=== PATIENT | male | born 1930 | race Caucasian/White ===

== ENCOUNTER 2019-04-13 14:33 | Emergency (ER) | payer MEDICARE, MEDICAID ==
--- NOTE | 2019-04-13 15:16 | ED Physician Chart ---
ED Chief Complaint/HPI - Patient Information Date Seen:: 04/13/19 Time Seen:: 15:11 Chief Complaint:: psych History of Present Illness:: 88 yr old male who was being monitored by his son on nest camera where he was supposedly seen to be holding a gun and pointing it at people through the window police were called and he was placed on a hold Allergies:: Allergies Allergy/AdvReac Type Severity Reaction Status Date / Time No Known Allergies Allergy Verified 04/13/19 14:49 Vitals:: Vital Signs - 8 hr 04/13/19 14:50 Temp 97.6 F HR 87 RR 16 BP 116/73 ED Review of Systems - Review of Systems General/Constitutional: No fever, No chills, No weight loss, No weakness, No diaphoresis, No edema, No loss of appetite Skin: No skin lesions, No rash, No bruising Head: No headache, No light-headedness Eyes: No loss of vision, No pain, No diplopia ENT: No earache, No nasal drainage, No sore throat, No tinnitus Neck: No neck pain, No swelling, No thyromegaly, No stiffness, No mass noted Cardio Vascular: No chest pain, No palpitations, No PND, No orthopnea, No edema Pulmonary: No SOB, No cough, No sputum, No wheezing GI: No nausea, No vomiting, No diarrhea, No pain, No melena, No hematochezia, No constipation, No hematemesis G/U: No dysuria, No frequency, No hematuria Musculoskeletal: No bone or joint pain, No back pain, No muscle pain Endocrine: No polyuria, No polydipsia Psychiatric: No prior psych history, No depression, No anxiety, No suicidal ideation Hematopoietic: No bruising, No lymphadenopathy Allergic/Immuno: No urticaria, No angioedema Neurological: No syncope, No focal symptoms, No weakness, No paresthesia, No headache, No seizure, No dizziness, No confusion, No vertigo ED Past Medical History - Past Medical History Past Medical History: HTN Family Medical History - Family Member Mother Ethnicity: Non- Living Status: Hx Family Cancer: No Hx Family Coronary Artery Disease: No Hx Family Congestive Heart Failure: No Hx Family Hypertension: No Hx Family Stroke: No Hx Family Diabetes: No Hx Family Seizures: No Hx Family Dementia: No Hx Family AIDS: No Hx Family HIV: No Hx Family COPD: No Hx Family Hepatitis: No Hx Family Psychiatric Problems: No Hx Family Tuberculosis: No Other Medical History: ASTHMA ED Physical Exam - Physical Examination General/Constitutional: Awake, Well-developed, well-nourished, Alert, No distress, GCS 15, Non-toxic appearing, Ambulatory Head: Atraumatic Eyes: Lids, conjuctiva normal, PERRL, EOMI Skin: Nl inspection, No rash, No skin lesions, No ecchymosis, Well hydrated, No lymphadenopathy ENMT: External ears, nose nl, Nasal exam nl, Lips, teeth, gums nl Neck: Nontender, Full ROM w/o pain, No JVD, No nuchal rigidity, No bruit, No mass, No stridor Respiratory: Nl effort/Exclusion, Clear to Auscultation, No Wheeze/Rhonchi/Rales Cardio Vascular: RRR, No murmur, gallop, rubs, NL S1 S2 GI: No tenderness/rebounding/guarding, No organomegaly, No hernia, Normal BS's, Nondistended, No mass/bruits, No McBurney tenderness : No CVA tenderness Extremities: No tenderness or effusion, Full ROM, normal strength in all extremities, No edema, Normal digits & nails Neuro/Psych: Alert/oriented, DTR's symmetric, Normal sensory exam, Normal motor strength, Judgement/insight normal, Mood normal, Normal gait, No focal deficits Misc: Normal back, No paraspinal tenderness ED Assessment - Assessment General Assessment: psych 5150 hold ED Septic Shock - . Is Septic Shock (SBP<90, OR Lactate>4 mmol\L) present?: No - <6hrs of presentation: Vital Signs: Vital Signs - 8 hr 04/13/19 14:50 Temp 97.6 F HR 87 RR 16 BP 116/73 ED Reassessment (Disposition) - Reassessment Reassessment:: psych 5150 hold - Diagnosis Diagnosis:: as above - Patient Disposition Condition at Disposition:: Stable
[2019-04-13 15:52] LABS: HEMATOCRIT 38.2 % (41.0-60); HEMOGLOBIN 12.8 gm/dL (12-16); MEAN CELL VOLUME 95.5 fl (80-99); MEAN CORPUSCULAR HGB CONC 33.5 pg (28.0-36.0); PLATELET COUNT 135 Th/cmm (150-400); RED CELL DISTRIBUTION WIDTH 14.6 % (11.5-20.0)
[2019-04-13 15:54] LABS: WHITE BLOOD COUNT 3.7 Th/cmm (4.8-10.8)
[2019-04-13 15:58] LABS: ALB/GLOB RATIO 1.5 (1.0-1.8); ALBUMIN 3.9 gm/dL (4.2-5.5); ALKALINE PHOSPHATASE 73 U/L (34-104); ANION GAP 13.7 (7.0-16.0); BILIRUBIN,TOTAL 1.3 mg/dL (0.3-1.0); BUN - UREA NITROGEN 24 mg/dL (7-25); CALCIUM SERUM 9.3 mg/dL (8.6-10.3); CARBON DIOXIDE 26.1 mEq/L (21.0-31.0); CHLORIDE 89 mEq/L (98-107); CREATININE - SERUM 1.1 mg/dL (0.7-1.3); GLUCOSE 117 mg/dL (70-105); POTASSIUM SERUM 3.8 mEq/L (3.5-5.1); SGOT 41 U/L (13-39); SGPT/ALT 41 U/L (7-52); SODIUM SERUM 125 mEq/L (136-145); TOTAL PROTEIN,SERUM 6.5 gm/dL (6.0-8.3)
[2019-04-13] MEDS ORDERED: Sodium Chloride 0.9% 1,000 ML IV ONE ×2 (16:56→19:45)
[2019-04-13 16:57] LABS: EOSINOPHIL 0 % (0-5); LYMPHOCYTE 27 % (20-50); MONOCYTE 7 % (2-10); NEUTROPHILS 66 % (40-80)
[2019-04-13 16:58] LABS: BASOPHIL 0 % (0-3); PLATELET ESTIMATE DECREASED PLATELETS (NORMAL)
[2019-04-13 17:04] LABS: URINE SOURCE CLEAN C
[2019-04-13 17:08] LABS: URINE BILIRUBIN MODERATE (NEGATIVE); URINE BLOOD NEGATIVE (NEGATIVE); URINE GLUCOSE (UA) NEGATIVE (NEGATIVE); URINE KETONE TRACE mg/dL (NEGATIVE); URINE LEUKOCYTE ESTERASE NEGATIVE (NEGATIVE); URINE NITRATE NEGATIVE (NEGATIVE); URINE PH 5.5 (4.6 - 8.0); URINE PROTEIN 100 mg/dL (NEGATIVE)
[2019-04-13 17:10] LABS: URINE CLARITY CLEAR (CLEAR); URINE COLOR DARK YELLOW; URINE MICROSCOPIC INDICATED? YES
[2019-04-13 17:20] LABS: URINE RBC NONE SEEN /hpf (0-5)
[2019-04-13 17:21] LABS: URINE BACTERIA NONE SEEN /hpf (NONE SEEN); URINE EPITHELIAL CELLS NONE SEEN /lpf (FEW); URINE HYALINE CAST 0-2 /lpf (0-2); URINE ICTOTEST POSITIVE (NEGATIVE); URINE WBC NONE SEEN /hpf (0-5)
[2019-04-13 18:54] LABS: BUN - UREA NITROGEN 22 mg/dL (7-25); CALCIUM SERUM 8.9 mg/dL (8.6-10.3); CARBON DIOXIDE 23.8 mEq/L (21.0-31.0); CHLORIDE 92 mEq/L (98-107); GLUCOSE 155 mg/dL (70-105); POTASSIUM SERUM 3.8 mEq/L (3.5-5.1); SODIUM SERUM 126 mEq/L (136-145)
[2019-04-13] MEDS ORDERED: NITROGLYCERIN OINT 2% 1 INCH PACKET TP STA (22:17)
[2019-04-14 07:38] LABS: ALB/GLOB RATIO 1.2 (1.0-1.8); ALBUMIN 3.8 gm/dL (4.2-5.5); ALKALINE PHOSPHATASE 73 U/L (34-104); ANION GAP 13.3 (7.0-16.0); BILIRUBIN,TOTAL 1.4 mg/dL (0.3-1.0); BUN - UREA NITROGEN 20 mg/dL (7-25); CALCIUM SERUM 9.3 mg/dL (8.6-10.3); CHLORIDE 90 mEq/L (98-107); GLUCOSE 133 mg/dL (70-105); POTASSIUM SERUM 4.3 mEq/L (3.5-5.1); SGOT 40 U/L (13-39); SGPT/ALT 42 U/L (7-52); SODIUM SERUM 124 mEq/L (136-145); TOTAL PROTEIN,SERUM 6.9 gm/dL (6.0-8.3)
--- NOTE | 2019-04-14 22:25 | ED Physician Chart ---
ED Chief Complaint/HPI - Patient Information Allergies:: Allergies Allergy/AdvReac Type Severity Reaction Status Date / Time No Known Allergies Allergy Verified 04/13/19 14:49 Vitals:: Vital Signs - 8 hr 04/14/19 04/14/19 04/14/19 14:30 16:28 19:37 Temp 97.2 F 97.1 F 97 F HR 91 85 90 RR 29 31 23 BP 121/76 110/62 O2 Sat % 98 100 100 Family Medical History - Family Member Mother Ethnicity: Non- Living Status: Hx Family Cancer: No Hx Family Coronary Artery Disease: No Hx Family Congestive Heart Failure: No Hx Family Hypertension: No Hx Family Stroke: No Hx Family Diabetes: No Hx Family Seizures: No Hx Family Dementia: No Hx Family AIDS: No Hx Family HIV: No Hx Family COPD: No Hx Family Hepatitis: No Hx Family Psychiatric Problems: No Hx Family Tuberculosis: No Other Medical History: ASTHMA ED Labs/Radiology/EKG Results - Lab Results Results: Laboratory Tests 04/13/19 04/13/19 04/13/19 15:35 15:35 15:35 WBC 3.7 L RBC 4.00 Hgb 12.8 Hct 38.2 L MCV 95.5 MCH 32.0 H MCHC Differential 33.5 RDW 14.6 Plt Count 135 L MPV 8.7 Add Manual Diff YES Neutrophils % TEST OPERATOR Lymphocytes % TEST OPERATOR Monocytes % TEST OPERATOR Eosinophils % TEST OPERATOR Basophils % TEST OPERATOR Neutrophils (Manual) 66 Lymphocytes 27 Monocytes 7 Eosinophils 0 Basophils 0 Platelet Estimate DECREASED PLATELETS Sodium 125 L Potassium 3.8 Chloride 89 L Carbon Dioxide 26.1 Anion Gap 13.7 BUN 24 Creatinine 1.1 Est GFR ( Amer) TNP Est GFR (Non-Af Amer) TNP BUN/Creatinine Ratio 21.8 Glucose 117 H Whole Bld Lactic Acid Calcium 9.3 Total Bilirubin 1.3 H AST 41 H ALT 41 Alkaline Phosphatase 73 Total Protein 6.5 Albumin 3.9 L Globulin 2.6 Albumin/Globulin Ratio 1.5 TSH 11.10 H Urine Source Urine Color Urine Clarity Urine pH Ur Specific [place] Urine Protein Urine Glucose (UA) Urine Ketones Urine Blood Urine Nitrate Urine Bilirubin Urine Ictotest Urine Urobilinogen Ur Leukocyte Esterase Urine RBC Urine WBC Ur Epithelial Cells Urine Bacteria Hyaline Casts 04/13/19 04/13/19 04/13/19 15:35 17:00 17:35 WBC RBC Hgb Hct MCV MCH MCHC Differential RDW Plt Count MPV Add Manual Diff Neutrophils % Lymphocytes % Monocytes % Eosinophils % Basophils % Neutrophils (Manual) Lymphocytes Monocytes Eosinophils Basophils Platelet Estimate Sodium Potassium Chloride Carbon Dioxide Anion Gap BUN Creatinine Est GFR ( Amer) Est GFR (Non-Af Amer) BUN/Creatinine Ratio Glucose Whole Bld Lactic Acid 2.30 H* 1.97 Calcium Total Bilirubin AST ALT Alkaline Phosphatase Total Protein Albumin Globulin Albumin/Globulin Ratio TSH Urine Source CLEAN C Urine Color DARK YELLOW Urine Clarity CLEAR Urine pH 5.5 Ur Specific [place] 1.025 Urine Protein 100 H Urine Glucose (UA) NEGATIVE Urine Ketones TRACE Urine Blood NEGATIVE Urine Nitrate NEGATIVE Urine Bilirubin MODERATE H Urine Ictotest POSITIVE H Urine Urobilinogen 2.0 Ur Leukocyte Esterase NEGATIVE Urine RBC NONE SEEN Urine WBC NONE SEEN Ur Epithelial Cells NONE SEEN Urine Bacteria NONE SEEN Hyaline Casts 0-2 H 04/13/19 04/14/19 18:35 07:14 WBC RBC Hgb Hct MCV MCH MCHC Differential RDW Plt Count MPV Add Manual Diff Neutrophils % Lymphocytes % Monocytes % Eosinophils % Basophils % Neutrophils (Manual) Lymphocytes Monocytes Eosinophils Basophils Platelet Estimate Sodium 126 L 124 L Potassium 3.8 4.3 Chloride 92 L 90 L Carbon Dioxide 23.8 25.0 Anion Gap 14.0 13.3 BUN 22 20 Creatinine 1.0 1.0 Est GFR ( Amer) TNP TNP Est GFR (Non-Af Amer) TNP TNP BUN/Creatinine Ratio 22.0 20.0 Glucose 155 H 133 H Whole Bld Lactic Acid Calcium 8.9 9.3 Total Bilirubin 1.4 H AST 40 H ALT 42 Alkaline Phosphatase 73 Total Protein 6.9 Albumin 3.8 L Globulin 3.1 Albumin/Globulin Ratio 1.2 TSH Urine Source Urine Color Urine Clarity Urine pH Ur Specific [place] Urine Protein Urine Glucose (UA) Urine Ketones Urine Blood Urine Nitrate Urine Bilirubin Urine Ictotest Urine Urobilinogen Ur Leukocyte Esterase Urine RBC Urine WBC Ur Epithelial Cells Urine Bacteria Hyaline Casts ED Septic Shock - . Is Septic Shock (SBP<90, OR Lactate>4 mmol\L) present?: No - <6hrs of presentation: Vital Signs: Vital Signs - 8 hr 04/14/19 04/14/19 04/14/19 14:30 16:28 19:37 Temp 97.2 F 97.1 F 97 F HR 91 85 90 RR 29 31 23 BP 121/76 110/62 O2 Sat % 98 100 100 ED Reassessment (Disposition) - Reassessment Reassessment:: ER Physician Note (late entry): 0 Pt was medically cleared by Dr. Petty to be evaluated by psych team and to be admitted to psych facility. Pt remained stable and comfortable. Dr. Kirby (psychiatrist) came at about 1030. She evaluated pt and recommended pt to be admitted to psych facility. Pt was transported by ambulance at about 2050 to [facility] for inpatient psych management.
--- NOTE | 2019-04-14 23:36 | Consultation ---
DATE OF CONSULTATION: 04/14/2019 IDENTIFYING INFORMATION: The patient is an 88-year-old male. HISTORY OF PRESENT ILLNESS: The patient was admitted on a hold by the police officers for danger to others. Apparently his son was monitoring him via an NS camera inside his home. The patient was captured on camera pointing a gun from inside his home to where the open front door in the direction of other occupied dwellings. When I talked to him, he was not a very good historian. He was unable to tell me the date, he said he has a rough night, unable to explain, he notes this is March and this is Sunday. He knows he is at [facility], but he could not tell me any more details. When I asked about sleep and appetite, he said he was okay. PAST PSYCHIATRIC HISTORY: The patient is unable to tell me. He said there is no previous psychiatric treatment; however, I am not sure whether to believe or not. He denies that he would harm himself and that he sleeps and eats well. He denies visual hallucination or paranoia. MEDICAL HISTORY: Deferred to the medical doctor. The patient was not sure if he is on medication. FAMILY HISTORY: The patient has been for more than 50 years and that he has 1 son 49 years of age. 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 He denies any recent use of alcohol or drugs. However, he is not a reliable historian. MENTAL STATUS EXAMINATION: The patient is appropriately dressed, not well groomed. He was alert. He was unable to tell me the date, other than this is March, Sunday. He knows he was in the hospital, but he thinks it is because of his medical condition. He has oxygen cannula on. He was unable to tell me why he is here. He said he has a rough night. He sleeps well, eats well. He denies that he was trying to harm himself or anybody, however he was pointing a real gun towards outside dwellings. He was unable to tell me the president of [facility], unpredictable and impulsive. Long-term is good. He can remember his age, but not date of . Recent memory is poor, cannot remember events after admission. His insight about his illness is poor, does not realize he has problem. Judgment is poor with him pointing a gun towards other people. IMPRESSION: Psychosis, not otherwise specified, rule out bipolar disorder. MEDICAL DIAGNOSES: Deferred to the medical doctor. PLAN: I would recommend the patient is already on a hold. The patient needs to go to a psychiatric unit for further stabilization. The patient needs to have 1:1 so he would not hurt anyone. Thank you very much for allowing me to participate in the care of this most interesting patient. JOB# [id number]
== END 2019-04-14 21:01 | disposition short-term general hospital (02) ==
LOC: ER 14:33
DX: F29 Unspecified psychosis not due to a substance or known physiological condition (principal); I10 Essential (primary) hypertension
CPT/HCPCS: 36415-UA; 80048-TC; 80053-TC; 81001-TC; 83605; 84443-TC; 85007-TC; 85025-TC; J7030